=== PATIENT | male | born 1995 | race African-American/Black ===

== ENCOUNTER 2017-09-04 10:52 | Emergency (ER) | payer SELFPAY ==
--- NOTE | 2017-09-04 11:07 | EDM.PDOC ---
ED HPI GENERAL MEDICAL PROBLEM - General Chief Complaint: Genitourinary Problem Stated Complaint: PAIN WHEN URINATING Time Seen by Provider: 09/04/17 11:06 Source of Information: Reports: Patient - History of Present Illness INITIAL COMMENTS - FREE TEXT/NARRATIVE: HISTORY AND PHYSICAL: History of present illness: [Patient presents with dysuria for 1 week, she admits to one sexual partner has had previous STI he states symptoms are similar. Scant exudates intermittently currently not present No fever nausea vomiting chills sweats ] patient was treated for gonorrhea Chlamydia through the clinic last week negative test results are on file Review of systems: As per history of present illness and below otherwise all systems reviewed and negative. Past medical history: As per history of present illness and as reviewed below otherwise noncontributory. Surgical history: As per history of present illness and as reviewed below otherwise noncontributory. Social history: No reported history of drug or alcohol abuse. Family history: As per history of present illness and as reviewed below otherwise noncontributory. Physical exam: HEENT: Atraumatic, normocephalic, pupils reactive, negative for conjunctival pallor or scleral icterus, mucous membranes moist, throat clear, neck supple, nontender, trachea midline. Lungs: Clear to auscultation, breath sounds equal bilaterally, chest nontender. Heart: S1S2, regular, negative for clicks, rubs, or JVD. Abdomen: Soft, nondistended, nontender. Negative for masses or hepatosplenomegaly. Negative for costovertebral tenderness. Pelvis: Stable nontender. Genitourinary: Deferred. Rectal: Deferred. Extremities: Atraumatic, negative for cords or calf pain. Neurovascular unremarkable. Neuro: Awake, alert, oriented. Cranial nerves II through XII unremarkable. Cerebellum unremarkable. Motor and sensory unremarkable throughout. Exam nonfocal. Diagnostics: [UA, culture, GC Chlamydia ] Previous negative test results on file Therapeutics: [Doxycycline 100 by mouth twice a day #14 no refill ] Impression: [dysuria ] Definitive disposition and diagnosis as appropriate pending reevaluation and review of above. Penis Pain Score (Numeric/FACES): 8 - Related Data Allergies Allergy/AdvReac Type Severity Reaction Status Date / Time No Known Allergies Allergy Verified 09/04/17 11:04 Home Meds: Home Meds . [No Known Home Meds] 09/04/17 [History] ED ROS GENERAL - Review of Systems Review Of Systems: ROS reveals no pertinent complaints other than HPI. ED EXAM, GENERAL - Physical Exam Exam: See Below Course - Vital Signs Last Recorded V/S: Last Vital Signs Temp 98.3 F 09/04/17 11:00 Pulse 80 09/04/17 11:00 Resp 18 09/04/17 11:00 BP 124/77 09/04/17 11:00 Pulse Ox 99 09/04/17 11:00 - Orders/Labs/Meds Orders: Active Orders 24 hr Category Date Time Status CHLAMYDIA AND GONORRHEA BY TMA Stat Lab 09/04/17 11:12 Received CULTURE URINE [RM] Stat Lab 09/04/17 11:12 Ordered UA W/MICROSCOPIC [URIN] Stat Lab 09/04/17 11:12 Ordered Labs: Laboratory Tests 09/04/17 Range/Units 11:12 Urine Color YELLOW Urine Appearance CLEAR Urine pH 7.0 (5.0-8.0) Ur Specific [place] 1.020 (1.001-1.035) Urine Protein NEGATIVE (NEGATIVE) mg/dL Urine Glucose (UA) NEGATIVE (NEGATIVE) mg/dL Urine Ketones NEGATIVE (NEGATIVE) mg/dL Urine Occult Blood NEGATIVE (NEGATIVE) Urine Nitrite NEGATIVE (NEGATIVE) Urine Bilirubin NEGATIVE (NEGATIVE) Urine Urobilinogen 0.2 (<2.0) EU/dL Ur Leukocyte Esterase NEGATIVE (NEGATIVE) Urine RBC 0-1 (0-2/HPF) Urine WBC 0-1 (0-5/HPF) Ur Epithelial Cells RARE (NONE-FEW) Amorphous Sediment LIGHT (NEGATIVE) Urine Bacteria RARE (NEGATIVE) Departure - Departure Time of Disposition: 11:49 Disposition: Home, Self-Care 01 Condition: Good Clinical Impression: Dysuria - Discharge Information Referrals: PCP,None [Primary Care Provider] - Forms: ED Department Discharge Additional Instructions: The following information is given to patients seen in the emergency department who are being discharged to home. This information is to outline your options for follow-up care. We provide all patients seen in our emergency department with a follow-up referral. The need for follow-up, as well as the timing and circumstances, are variable depending upon the specifics of your emergency department visit. If you don't have a primary care physician on staff, we will provide you with a referral. We always advise you to contact your personal physician following an emergency department visit to inform them of the circumstance of the visit and for follow-up with them and/or the need for any referrals to a consulting specialist. The emergency department will also refer you to a specialist when appropriate. This referral assures that you have the opportunity for follow-up care with a specialist. All of these measure are taken in an effort to provide you with optimal care, which includes your follow-up. Under all circumstances we always encourage you to contact your private physician who remains a resource for coordinating your care. When calling for follow-up care, please make the office aware that this follow-up is from your recent emergency room visit. If for any reason you are refused follow-up, please contact the [facility] emergency department at and asked to speak to the emergency department charge nurse. - My Orders Last 24 Hours: My Active Orders 09/04/17 11:12 CHLAMYDIA AND GONORRHEA BY TMA Stat CULTURE URINE [RM] Stat UA W/MICROSCOPIC [URIN] Stat - Assessment/Plan Last 24 Hours: My Active Orders 09/04/17 11:12 CHLAMYDIA AND GONORRHEA BY TMA Stat CULTURE URINE [RM] Stat UA W/MICROSCOPIC [URIN] Stat
[2017-09-04] MEDS: cefTRIAXone 250 MG in Lidocaine 1% 1 ML IM ONE (12:08)
== END 2017-09-04 12:31 | disposition home or self-care (01) ==
LOC: MW.ED 10:52
DX: R30.0 Dysuria (principal)
CPT/HCPCS: 81001; 87086; 87491; 87591; 96372; 99283; J0696; 99282

== ENCOUNTER 2017-10-18 08:51 | Emergency (ER) | payer SELFPAY ==
[2017-10-18] MEDS ORDERED: metroNIDAZOLE 250 MG Tab PO ONE (09:08)
[2017-10-18] MEDS ORDERED: Azithromycin 250 MG Tab PO ONE (09:08)
[2017-10-18] MEDS ORDERED: cefTRIAXone 250 MG in Lidocaine 1% 1 ML IM ONE (09:08)
--- NOTE | 2017-10-18 09:12 | EDM.PDOC ---
ED HPI GENERAL MEDICAL PROBLEM - General Chief Complaint: Genitourinary Problem Stated Complaint: MALE PROBLEMS Time Seen by Provider: 10/18/17 09:03 - History of Present Illness INITIAL COMMENTS - FREE TEXT/NARRATIVE: HISTORY AND PHYSICAL: History of present illness: The patient is a healthy 22-year-old male who presents with complaints of discharge from his penis that has been ongoing for the last several days to one week. He doesn't specifically have pain with urination or bloody urine and he has no testicular pain or swelling no skin sores in the genital area and no abdominal complaints. He says he was seen here in August and was given the Rocephin but got a prescription for doxycycline which she could not fill because he couldn't afford it. He says that he wants to be retreated. He would like to do a urine sample to see a definitive diagnosis as on information. He has no other systemic complaints and has been eating and drinking normally. He also expresses that in the past he had a sore that he thought might of been herpes and he wanted testing for that but he currently has no open sores or complaints of skin lesions and I told him that would be challenging to do on this ED visit and will give him appropriate referrals. Review of systems: As per history of present illness and below otherwise all systems reviewed and negative. Past medical history: As per history of present illness and as reviewed below otherwise noncontributory. Surgical history: As per history of present illness and as reviewed below otherwise noncontributory. Social history: No reported history of drug or alcohol abuse. Family history: As per history of present illness and as reviewed below otherwise noncontributory. Physical exam: HEENT: Atraumatic, normocephalic, negative for conjunctival pallor or scleral icterus, mucous membranes moist, throat clear, neck supple, nontender, trachea midline. Lungs: Clear to auscultation, breath sounds equal bilaterally, chest nontender. Heart: S1S2, regular, rate and rhythm no overt murmurs Abdomen: Soft, nondistended, nontender. NABS Pelvis: Stable nontender. Genitourinary: Deferred. Rectal: Deferred. Extremities: Atraumatic, negative for cords or calf pain. Neurovascular unremarkable. Neuro: Awake, alert, oriented. Cranial nerves II through XII unremarkable. Cerebellum unremarkable. Motor and sensory unremarkable throughout. Exam nonfocal. Diagnostics: Urine for GC and chlamydia per patient request Therapeutics: Rocephin IM, Zithromax by mouth, Flagyl by mouth Impression: Urethritis/penile discharge Definitive disposition and diagnosis as appropriate pending reevaluation and review of above. - Related Data Allergies Allergy/AdvReac Type Severity Reaction Status Date / Time No Known Allergies Allergy Verified 10/18/17 09:00 Home Meds: Home Meds . [No Known Home Meds] 09/04/17 [History] Past Medical History - Past Health History Medical/Surgical History: Denies Medical/Surgical History Social & Family History - Family History Family Medical History: Noncontributory - Tobacco Use Smoking Status *Q: Current Every Day Smoker Years of Tobacco use: 2 Packs/Tins Daily: 0.1 - Caffeine Use Caffeine Use: Reports: Soda - Recreational Drug Use Recreational Drug Use: Yes Recreational Drug Type: Reports: Marijuana/Hashish Recreational Drug Use Frequency: Daily ED ROS GENERAL - Review of Systems Review Of Systems: ROS reveals no pertinent complaints other than HPI. ED EXAM, GENERAL - Physical Exam Exam: See Below (See dictation) Course - Vital Signs Last Recorded V/S: Last Vital Signs Temp 36.3 C 10/18/17 09:00 Pulse 76 10/18/17 09:00 Resp 18 10/18/17 09:00 BP 117/73 10/18/17 09:00 Pulse Ox 98 10/18/17 09:00 - Orders/Labs/Meds Orders: Active Orders 24 hr Category Date Time Status CHLAMYDIA AND GONORRHEA BY TMA Stat Lab 10/18/17 09:08 Ordered Azithromycin [Zithromax] Med 10/18/17 09:08 Once 1,000 mg PO ONETIME ONE cefTRIAXone [Rocephin] 250 mg Med 10/18/17 09:08 Ordered Lidocaine 1% [Xylocaine-MPF 1%] 1 ml IM ONETIME metroNIDAZOLE Med 10/18/17 09:08 Once 2,000 mg PO NOW ONE Departure - Departure Time of Disposition: 09:11 Disposition: Home, Self-Care 01 Condition: Good Clinical Impression: Penile discharge - Discharge Information Referrals: PCP,None [Primary Care Provider] - Additional Instructions: The following information is given to patients seen in the emergency department who are being discharged to home. This information is to outline your options for follow-up care. We provide all patients seen in our emergency department with a follow-up referral. The need for follow-up, as well as the timing and circumstances, are variable depending upon the specifics of your emergency department visit. If you don't have a primary care physician on staff, we will provide you with a referral. We always advise you to contact your personal physician following an emergency department visit to inform them of the circumstance of the visit and for follow-up with them and/or the need for any referrals to a consulting specialist. The emergency department will also refer you to a specialist when appropriate. This referral assures that you have the opportunity for followup care with a specialist. All of these measure are taken in an effort to provide you with optimal care, which includes your followup. Under all circumstances we always encourage you to contact your private physician who remains a resource for coordinating your care. When calling for followup care, please make the office aware that this follow-up is from your recent emergency room visit. If for any reason you are refused follow-up, please contact the [facility] emergency department at and ask to speak to the emergency department charge nurse. [facility] Primary care- Internal Medicine and [facility] [address] [place] [id number] [facility] [address] [place] [id number] Please follow-up with one of our providers using resources given to above or the Board of [employer] for further care of your concerns. You have been treated for your complaints but should not engage in sexual intercourse for the next 5 days and then use condoms thereafter. Please inform all providers of your concerns and you will be contacted regarding your urine test in the next 5 days if it is positive. Return to ER as needed and as discussed - My Orders Last 24 Hours: My Active Orders 10/18/17 09:08 CHLAMYDIA AND GONORRHEA BY TMA Stat Azithromycin [Zithromax] 1,000 mg PO ONETIME ONE cefTRIAXone [Rocephin] 250 mg Lidocaine 1% [Xylocaine-MPF 1%] 1 ml IM ONETIME metroNIDAZOLE 2,000 mg PO NOW ONE - Assessment/Plan Last 24 Hours: My Active Orders 10/18/17 09:08 CHLAMYDIA AND GONORRHEA BY TMA Stat Azithromycin [Zithromax] 1,000 mg PO ONETIME ONE cefTRIAXone [Rocephin] 250 mg Lidocaine 1% [Xylocaine-MPF 1%] 1 ml IM ONETIME metroNIDAZOLE 2,000 mg PO NOW ONE
== END 2017-10-18 10:13 | disposition home or self-care (01) ==
LOC: MW.ED 08:51
DX: N34.2 Other urethritis (principal); F17.210 Nicotine dependence, cigarettes, uncomplicated
CPT/HCPCS: 87491; 87591; 96372; 99283; A9270; J0696; J2001

== ENCOUNTER 2017-11-14 15:10 | Emergency (ER) | payer SELFPAY ==
--- NOTE | 2017-11-14 15:34 | EDM.PDOC ---
ED HPI GENERAL MEDICAL PROBLEM - General Chief Complaint: Body Fluid Exposure Stated Complaint: EXPOSURE TO STD Time Seen by Provider: 11/14/17 15:31 Source of Information: Reports: Patient History Limitations: Reports: No Limitations - History of Present Illness INITIAL COMMENTS - FREE TEXT/NARRATIVE: HISTORY AND PHYSICAL: []22-year-old male presenting with concerns over STD exposure History of Present Illness: []Patient now has a girlfriend who is old boyfriend text at her stating that he had STD and she should be checked for chlamydia as he had that. Really no symptoms at this time however is quite concerned. Review of Systems: As per history of present illness and below otherwise all systems reviewed and negative. Past medical history: As per history of present illness and as reviewed below otherwise noncontributory. Surgical history: As per history of present illness and as reviewed below otherwise noncontributory. Social history: No reported history of drug or alcohol abuse. Family history: As per history of present illness and as reviewed below otherwise noncontributory. Physical exam: Alert and oriented male answering questions appropriately very polite he is speaking in full sentences without any shortness of breath is nontoxic in appearance HEENT: Atraumatic, normocehpalic, pupils reactive, negative for conjunctival pallor or scleral icterus, mucous membranes moist, throat clear, neck supple, nontender, trachea midline. Lungs: Clear to auscultation, breath sounds equal bilaterally, chest non tender. Heart: S1S2, regular, negative for clicks, rubs, or JVD. Abdomen: Soft, nondistended, nontender. Negative for masses or hepatossplenmegaly. Negative for costovertebral tenderness. Pelvis: Stable nontender. Genitourinary: Deferred. Rectal: Deferred Extremities: Atraumatic, negative for cords or calf pain. Neurovascular unremarkable. Neuro: Awake, alert, oriented. Cranial nerves II through XII unremarkable. Cerebellum unremarkable. Motor and sensory unremarkable throughout. Exam nonfocal. Diagnostics: []Chlamydia GC Trichomonas Therapeutics: []Zithromax 1 g by mouth Rocephin 250 mg IM Impression: []STD exposure Plan: []Discharge home Flagyl 250 mg 4 times a day 1 week Follow-up for reevaluation at the [facility] in a week to 10 days Definitive disposition and diagnosis as appropriate pending reevaluation and review of above. - Related Data Allergies Allergy/AdvReac Type Severity Reaction Status Date / Time No Known Allergies Allergy Verified 10/18/17 09:00 Home Meds: Home Meds metroNIDAZOLE [Flagyl] 250 mg PO Q8HR #15 tablet 11/14/17 [Rx] Past Medical History - Past Health History Medical/Surgical History: Denies Medical/Surgical History Social & Family History - Family History Family Medical History: Noncontributory - Caffeine Use Caffeine Use: Reports: Soda ED ROS GENERAL - Review of Systems Review Of Systems: ROS reveals no pertinent complaints other than HPI. ED EXAM, GENERAL - Physical Exam Exam: See Below (see dictation) Course - Orders/Labs/Meds Orders: Active Orders 24 hr Category Date Time Status CHLAMYDIA AND GONORRHEA BY TMA Stat Lab 11/14/17 15:40 Ordered TRICH/DAYANA/CAND BY DNA PROBE [MOLEC] Stat Lab 11/14/17 15:41 Ordered Azithromycin [Zithromax] Med 11/14/17 15:42 Once 1,000 mg PO ONETIME ONE cefTRIAXone [Rocephin] 250 mg Med 11/14/17 15:42 Ordered Lidocaine 1% [Xylocaine-MPF 1%] 1 ml IM ONETIME Medication Orders Azithromycin (Zithromax) 1,000 mg PO ONETIME ONE Stop: 11/14/17 15:43 Ceftriaxone Sodium 250 mg/ (Lidocaine HCl) 1 mls @ 1 mls/sec IM ONETIME ONE Stop: 11/14/17 15:43 Meds: Medications Generic Name Dose Route Start Last Admin Trade Name Freq PRN Reason Stop Dose Admin Azithromycin 1,000 mg 11/14/17 15:42 Zithromax PO 11/14/17 15:43 ONETIME ONE Ceftriaxone Sodium 250 mg/ 1 mls @ 1 mls/sec 11/14/17 15:42 Lidocaine HCl IM 11/14/17 15:43 ONETIME ONE Departure - Departure Time of Disposition: 15:45 Disposition: Home, Self-Care 01 Condition: Good Clinical Impression: Exposure to STD - Discharge Information Prescriptions: metroNIDAZOLE [Flagyl] 250 mg PO Q8HR #15 tablet Instructions: Sexually Transmitted Infection Forms: ED Department Discharge Additional Instructions: The following information is given to patients seen in the emergency department who are being discharged to home. This information is to outline your options for follow-up care. We provide all patients seen in our emergency department with a follow-up referral. The need for follow-up, as well as the timing and circumstances, are variable depending upon the specifics of your emergency department visit. If you don't have a primary care physician on staff, we will provide you with a referral. We always advise you to contact your personal physician following an emergency department visit to inform them of the circumstance of the visit and for follow-up with them and/or the need for any referrals to a consulting specialist. The emergency department will also refer you to a specialist when appropriate. This referral assures that you have the opportunity for followup care with a specialist. All of these measure are taken in an effort to provide you with optimal care, which includes your followup. Under all circumstances we always encourage you to contact your private physician who remains a resource for coordinating your care. When calling for followup care, please make the office aware that this follow-up is from your recent emergency room visit. If for any reason you are refused follow-up, please contact the [facility] emergency department at and asked to speak to the emergency department charge nurse. He had been treated with antibiotics for suspected STD Your laboratory results will not be available today Please follow-up at the [facility] for reevaluation in 7-10 days Prescription for Flagyl 250 one tablet 3 times a day 1 week has been electronically sent - My Orders Last 24 Hours: My Active Orders 11/14/17 15:40 CHLAMYDIA AND GONORRHEA BY TMA Stat 11/14/17 15:41 TRICH/DAYANA/CAND BY DNA PROBE [MOLEC] Stat 11/14/17 15:42 Azithromycin [Zithromax] 1,000 mg PO ONETIME ONE cefTRIAXone [Rocephin] 250 mg Lidocaine 1% [Xylocaine-MPF 1%] 1 ml IM ONETIME - Assessment/Plan Last 24 Hours: My Active Orders 11/14/17 15:40 CHLAMYDIA AND GONORRHEA BY TMA Stat 11/14/17 15:41 TRICH/DAYANA/CAND BY DNA PROBE [MOLEC] Stat 11/14/17 15:42 Azithromycin [Zithromax] 1,000 mg PO ONETIME ONE cefTRIAXone [Rocephin] 250 mg Lidocaine 1% [Xylocaine-MPF 1%] 1 ml IM ONETIME
[2017-11-14] MEDS ORDERED: Azithromycin 250 MG Tab PO ONE (15:42)
[2017-11-14] MEDS ORDERED: cefTRIAXone 250 MG in Lidocaine 1% 1 ML IM ONE (15:42)
== END 2017-11-14 16:51 | disposition home or self-care (01) ==
LOC: MW.ED 15:10
DX: Z20.2 Contact with and (suspected) exposure to infections with a predominantly sexual mode of transmission (principal)
CPT/HCPCS: 87491; 87591; 96372; 99283; A9270; J0696; J2001